=== PATIENT | male | born 1960 | race Caucasian/White ===

== ENCOUNTER 2018-12-29 06:54 | Day surgery (SDC) | payer OTHER ==
[~2018-12-29] VITALS: Ht 180.3 cm; Wt 116.1 kg
[~2018-12-29 06:54] MED LIST: ASPI1TAB PO; FENO145T13 PO; LISI10TA4 PO; MELA3TAB PO; MULTTAB PO
[2018-12-29] MEDS ORDERED: NS 1,000 ML IV ONE (07:00)
[2018-12-29] MEDS ORDERED: LIDOCAINE 2% INJ 100 MG/5 ML SDV (FOR ANES.) As Ordered ONE (07:02)
[2018-12-29] MEDS ORDERED: PROPOFOL 200 MG/20 ML VIAL As Ordered ONE (07:02)
--- NOTE | 2018-12-29 08:26 | ROOR ---
Patient Name: Dorian Cisneros Procedure Date: 12/29/2018 8:02 AM Date of : 1960 Age: 58 Room: [facility] Gender: Male Note Status: Finalized Procedure: Colonoscopy Indications: Screening for colorectal malignant neoplasm Providers: Brody RODRIGUEZ MD Referring MD: MELANIE BAIRES MD Requesting Provider: Medicines: Monitored Anesthesia Care Complications: No immediate complications. Procedure: Pre-Anesthesia Assessment: - The heart rate, respiratory rate, oxygen saturations, blood pressure, adequacy of pulmonary ventilation, and response to care were monitored throughout the procedure. The Colonoscope was introduced through the anus and advanced to the terminal ileum, with identification of the appendiceal orifice and IC valve. The colonoscopy was performed without difficulty. The patient tolerated the procedure well. The quality of the bowel preparation was good. Findings: The perianal and digital rectal examinations were normal. Small Internal Hemorrhoids. The entire colon appeared normal on direct and retroflexion views. Retroflexion in the right colon was performed. Impression: - Small Internal Hemorrhoids. - The entire colon is normal on direct and retroflexion views. - No specimens collected. Recommendation: - Repeat colonoscopy in 10 years for screening purposes. Brody Rodriguez MD Brody RODRIGUEZ MD 12/29/2018 8:25:58 AM This report has been signed electronically. Number of Addenda: 0 Note Initiated On: 12/29/2018 8:02 AM Estimated Blood Loss: Estimated blood loss: none.
[2018-12-29 08:50] VITALS: BP 153/71
== END 2018-12-29 08:58 | disposition home or self-care (01) ==
LOC: M OPP 06:54
PROVIDERS: ATTEND Internal Medicine Gastroenterology
DX: K64.8 Other hemorrhoids (principal); Z12.11 Encounter for screening for malignant neoplasm of colon

== ENCOUNTER 2020-01-08 01:02 | Emergency (ER) | payer OTHER ==
[~2020-01-08] VITALS: Ht 180.3 cm; Wt 114.5 kg
[~2020-01-08 01:02] MED LIST changes: -ASPI1TAB PO; +ASPI81TA26 PO; -FENO145T13 PO; +FENO145T7 PO; -MELA3TAB PO; +MELA3TAB63 PO
--- NOTE | 2020-01-08 01:59 | REPVR ---
PROCEDURE INFORMATION: Exam: CT Head Without Contrast Exam date and time: 01/08/2020 1:41 AM Age: 60 years old Clinical indication: Injury or trauma; Fall; Initial encounter; Blunt trauma (contusions or hematomas); Consciousness not specified; Additional info: Fall/head injury TECHNIQUE: Imaging protocol: Computed tomography of the head without contrast. Radiation optimization: All CT scans at this facility use at least one of these dose optimization techniques: automated exposure control; mA and/or kV adjustment per patient size (includes targeted exams where dose is matched to clinical indication); or iterative reconstruction. COMPARISON: No relevant prior studies available. FINDINGS: Brain: Normal. No hemorrhage. Unremarkable white matter. No mass effect. Ventricles: Normal. No ventriculomegaly. Bones/joints: Unremarkable. No acute fracture. Sinuses: Visualized sinuses are unremarkable. No fluid levels. Mastoid air cells: Visualized mastoid air cells are well aerated. Soft tissues: Unremarkable. IMPRESSION: No acute intracranial abnormality. Electronically signed by: Brody Tidwell On 01/08/2020 01:59:09 AM
--- NOTE | 2020-01-08 02:01 | REPVR ---
PROCEDURE INFORMATION: Exam: CT Maxillofacial Without Contrast Exam date and time: 01/08/2020 1:41 AM Age: 60 years old Clinical indication: Injury or trauma; Fall; Initial encounter; Blunt trauma (contusions or hematomas); Forehead and orbit/periorbital; Left; Additional info: Fall/head inj TECHNIQUE: Imaging protocol: Computed tomography images of the face without contrast. Radiation optimization: All CT scans at this facility use at least one of these dose optimization techniques: automated exposure control; mA and/or kV adjustment per patient size (includes targeted exams where dose is matched to clinical indication); or iterative reconstruction. COMPARISON: No relevant prior studies available. FINDINGS: Orbits: Orbits are normal. Globes are unremarkable. Sinuses: Mild scattered paranasal sinus mucosal thickening and secretions. Bones/joints: Lucencies within the nasal bones with slight deformity of the nasal bones, however appears potentially chronic, correlate. Dental: Dental caries and periodontal disease. Soft tissues: Left periorbital soft tissue swelling. IMPRESSION: Lucencies within the nasal bones with slight deformity of the nasal bones, however appears potentially chronic, correlate. Electronically signed by: Brody Tidwell On 01/08/2020 02:01:26 AM
--- NOTE | 2020-01-08 02:03 | REPVR ---
PROCEDURE INFORMATION: Exam: CT Cervical Spine Without Contrast Exam date and time: 01/08/2020 1:41 AM Age: 60 years old Clinical indication: Injury or trauma; Fall; Initial encounter; Blunt trauma; Additional info: Fall/head inj TECHNIQUE: Imaging protocol: Computed tomography images of the cervical spine without contrast. Radiation optimization: All CT scans at this facility use at least one of these dose optimization techniques: automated exposure control; mA and/or kV adjustment per patient size (includes targeted exams where dose is matched to clinical indication); or iterative reconstruction. COMPARISON: No relevant prior studies available. FINDINGS: Vertebrae: Straightening of the normal cervical lordotic curvature. Normal vertebral body heights and alignments. No fractures. Discs/Spinal canal/Neural foramina: Degenerative disc and joint disease with disc osteophyte complexes greatest at C3-C4, and C5-C7 with moderate spinal and foraminal stenosis. Soft tissues: Unremarkable. Auditory system: Debris and cerumen located in the external auditory canals. Lungs: Lung apices are normal. IMPRESSION: No acute fracture/subluxation. Electronically signed by: Brody Tidwell On 01/08/2020 02:02:39 AM
[2020-01-08 02:32] LABS: BASO # 0.1 10^3/uL (0.0-0.2); BASO % 0.6 % (0.0-1.0); EOS # 0.2 10^3/uL (0.0-0.5); EOS % 2.1 % (0.0-3.0); HEMATOCRIT 44.8 % (42.0-52.0); HEMOGLOBIN 15.7 g/dl (13.5-17.5); LYMPH # 1.7 10^3/uL (1.5-5.0); LYMPH % 21.4 % (24.0-44.0); MONO # 0.7 10^3/uL (0.0-0.8); MONO % 9.1 % (0.0-5.0); NEUTROPHILS # 5.1 10^3/uL (1.5-8.5); NEUTROPHILS % 66.4 % (36.0-66.0); PLATELET COUNT, AUTOMATED 238 10^3/uL (150-450); RED BLOOD COUNT 4.62 10^6/uL (4.30-6.10); WHITE BLOOD COUNT 7.7 10^3/uL (4.0-10.0)
[2020-01-08 02:58] LABS: ALBUMIN 3.7 GM/DL (3.2-5.2); ALT/SGPT 53 U/L (12-78); BILIRUBIN,TOTAL 0.2 MG/DL (0.2-1.0); BLOOD UREA NITROGEN 15 MG/DL (7-18); CALCIUM LEVEL 8.3 MG/DL (8.8-10.2); CARBON DIOXIDE LEVEL 26 MEQ/L (21-32); CHLORIDE LEVEL 109 MEQ/L (98-107); CK-MB VALUE MASS 2.9 NG/ML (<3.6); CPK CREATINE PHOSPHOKINASE 655 U/L (39-308); CREATININE FOR GFR 0.93 MG/DL (0.70-1.30); GLOMERULAR FILTRATION RATE > 60.0 (>49); GLUCOSE, FASTING 114 MG/DL (70-100); MB/CK RELATIVE INDEX 0.44 (< OR =4); POTASSIUM SERUM 4.1 MEQ/L (3.5-5.1); SODIUM LEVEL 143 MEQ/L (136-145); TOTAL PROTEIN 6.8 GM/DL (6.4-8.2); TROPONIN I < 0.02 NG/ML (< 0.10)
[2020-01-08 03:45] VITALS: BP 113/57
[2020-01-08] MEDS ORDERED: LIDOCAINE W/EPINEPHRINE 1% 20ML VIAL SC ONE (04:00)
[2020-01-08] MEDS ORDERED: ADACEL/BOOSTRIX VACCINE (DIPHTH/PERTUSS/ACELL/TETANUS)0.5ML SYR (90715) IM ONE (04:15)
--- NOTE | 2020-01-08 08:38 | ECGEPIP ---
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
== END 2020-01-08 04:29 | disposition home or self-care (01) ==
LOC: M ED 01:02
DX: S01.81XA Laceration without foreign body of other part of head, initial encounter (principal); W01.190A Fall on same level from slipping, tripping and stumbling with subsequent striking against furniture, initial encounter; Y92.003 Bedroom of unspecified non-institutional (private) residence as the place of occurrence of the external cause; Y93.89 Activity, other specified; Y99.9 Unspecified external cause status; Z79.899 Other long term (current) drug therapy

== ENCOUNTER → 2024-04-05 | Outpatient (CLI) | payer OTHER ==
[~2024-04-05] MED LIST changes: +LISI10TA22 PO; -LISI10TA4 PO; -MELA3TAB63 PO; +MELA3TAB70 PO
== END ==
LOC: M RAD 07:47
PROVIDERS: ATTEND Orthopaedic Surgery
DX: M54.59 Other low back pain (principal)

== ENCOUNTER → 2024-05-26 | Outpatient (CLI) | payer OTHER ==
[~2024-05-26] MED LIST changes: +PROHANCE 279.3MG/ML 15ML VIAL ONE; +PROHANCE 279.3MG/ML 5ML VIAL ONE
== END ==
LOC: M PLAIMG 13:57
PROVIDERS: ATTEND Physician Assistant
DX: M16.11 Unilateral primary osteoarthritis, right hip (principal); R93.7 Abnormal findings on diagnostic imaging of other parts of musculoskeletal system
CPT/HCPCS: 72158; A9576

== ENCOUNTER → 2025-04-05 | Outpatient (CLI) | payer MEDICARE, OTHER ==
[~2025-04-05] MED LIST changes: -PROHANCE 279.3MG/ML 15ML VIAL ONE; -PROHANCE 279.3MG/ML 5ML VIAL ONE
== END ==
LOC: M RAD 15:19
PROVIDERS: ATTEND Internal Medicine
DX: Z87.891 Personal history of nicotine dependence (principal)

== ENCOUNTER 2025-09-09 15:22 | Inpatient (IN) | payer MEDICARE, OTHER ==
[~2025-09-09] VITALS: Ht 180.3 cm; Wt 108.4 kg
[2025-09-09] MEDS: NICOTINE 21 MG/24 HR 1 EA TRANSDERMAL TD SCH (09:00)
[2025-09-09 16:09] LABS: BASO # 0.1 10^3/uL (0.0-0.2); BASO % 0.7 % (0.0-1.0); EOS # 0.2 10^3/uL (0.0-0.5); EOS % 2.6 % (0.0-3.0); LYMPH # 2.4 10^3/uL (1.5-5.0); LYMPH % 31.5 % (24.0-44.0); MONO # 0.7 10^3/uL (0.0-0.8); MONO % 9.7 % (2.0-8.0); NEUTROPHILS # 4.2 10^3/uL (1.5-8.5); NEUTROPHILS % 55.2 % (36.0-66.0); PLATELET COUNT, AUTOMATED 212 10^3/uL (150-450)
[2025-09-09 16:20] LABS: INR 0.99
[2025-09-09 16:33] LABS: ETHYL ALCOHOL (ETHANOL) 0.15 % (0.000-0.010)
[2025-09-09 16:35] LABS: CALCIUM LEVEL 8.7 MG/DL (8.3-10.6); CARBON DIOXIDE LEVEL 24.0 MMOL/L (20-31); CHLORIDE LEVEL 104.0 MMOL/L (98-107); CK-MB VALUE MASS 2.2 NG/ML (<3.6); CREATININE FOR GFR 1.02 MG/DL (0.70-1.30); GLOMERULAR FILTRATION RATE 81.6 (>49); MAGNESIUM LEVEL 2.1 MG/DL (1.8-2.4); POTASSIUM SERUM 4.3 MMOL/L (3.5-5.1); SODIUM LEVEL 138.0 MMOL/L (136-145)
[2025-09-09 16:37] LABS: FREE T4 1.28 NG/DL (0.89-1.76)
[2025-09-09] MEDS: NS (Normal Saline) 0.9% 1,000 ML IV ONE (16:38)
[2025-09-09 16:39] LABS: CPK CREATINE PHOSPHOKINASE 159.0 U/L (46-171); MB/CK RELATIVE INDEX 1.38 (< OR =4)
[2025-09-09 17:35] LABS: CK-MB VALUE MASS 1.9 NG/ML (<3.6)
[2025-09-09 17:37] LABS: CPK CREATINE PHOSPHOKINASE 141.0 U/L (46-171); MB/CK RELATIVE INDEX 1.34 (< OR =4)
[2025-09-09] MEDS ORDERED: ACETAMINOPHEN 325 MG TAB PO PRN (18:20)
[2025-09-09] MEDS ORDERED: ISOVUE-370 76% 100 ML VIAL As Ordered ONE (18:39)
[2025-09-09] MEDS: NS (Normal Saline) 0.9% 1,000 ML IV SCH (18:40)
[2025-09-09 18:52] LABS: CHOLESTEROL LEVEL 165.0 MG/DL (<200); CHOLESTEROL RISK RATIO 3.49 (<5); LDL CHOLESTEROL 84.6 MG/DL (<100); NON-HDL-C 117.8 MG/DL; TRIGLYCERIDES LEVEL 166.0 MG/DL (<150)
[2025-09-09 19:22] LABS: ESTIMATED AVERAGE GLUCOSE 103.0 MG/DL (60-110)
[2025-09-09 19:34] LABS: INR 1.02
[2025-09-09] MEDS: THIAMINE 100 MG TAB PO SCH (20:00)
[2025-09-09] MEDS ORDERED: ROSU10TA61 PO (23:48)
[2025-09-09] MEDS ORDERED: MULTTAB13 PO (23:48)
[2025-09-09] MEDS ORDERED: RA M10TA PO (23:48)
[2025-09-09] MEDS ORDERED: TAMS1CAP17 PO (23:48)
[2025-09-09] MEDS ORDERED: LISI20TA33 PO (23:48)
[2025-09-09] MEDS ORDERED: HOME MED LIST COMPLETE! XX SCH (23:50)
[2025-09-10] MEDS: ATORVASTATIN 20 MG TAB PO SCH (00:42)
[2025-09-10 06:29] LABS: PLATELET COUNT, AUTOMATED 223 10^3/uL (150-450)
[2025-09-10 07:02] LABS: ALT/SGPT 31 U/L (7.0-40); AST/SGOT 22 U/L (<34); CALCIUM LEVEL 9.0 MG/DL (8.3-10.6); CARBON DIOXIDE LEVEL 25 MMOL/L (20-31); CHLORIDE LEVEL 107 MMOL/L (98-107); CREATININE FOR GFR 0.82 MG/DL (0.70-1.30); GLOMERULAR FILTRATION RATE > 90.0 (>49); POTASSIUM SERUM 4.6 MMOL/L (3.5-5.1); SODIUM LEVEL 142 MMOL/L (136-145)
[2025-09-10] MEDS: FOLIC ACID 1 MG TAB PO SCH (09:43)
[2025-09-10] MEDS: MULTIVITAMINS/MINERALS THERAP 1 TAB PO SCH (09:43)
[2025-09-10] MEDS: ASPIRIN 81 MG ENTERIC TABLET PO SCH (16:02)
[2025-09-10] MEDS: CLOPIDOGREL 75 MG TAB PO SCH (16:03)
[2025-09-10] MEDS: hydrALAZINE 20 MG/ML 1 ML VIAL IV PRN (18:49)
[2025-09-10 20:30] VITALS: BP 163/88
[2025-09-10 20:55] VITALS: BP 163/88; TEMP 97.5; O2SAT 96
[2025-09-10] MEDS: TAMSULOSIN 0.4 MG CAP PO SCH (21:03)
[2025-09-11 01:00] VITALS: BP 148/67; TEMP 97.5; O2SAT 97
[2025-09-11 04:19] VITALS: BP 159/79; TEMP 97.4; O2SAT 97
[2025-09-11 04:21] VITALS: BP 159/79
[2025-09-11 07:35] LABS: PLATELET COUNT, AUTOMATED 196 10^3/uL (150-450)
[2025-09-11] MEDS: ENOXAPARIN 40 MG/0.4 ML SYRINGE (J1650 PER 10MG) SC SCH (07:37)
[2025-09-11 07:39] VITALS: BP 172/84
[2025-09-11 08:05] LABS: ALT/SGPT 26 U/L (7.0-40); AST/SGOT 17 U/L (<34); CALCIUM LEVEL 8.9 MG/DL (8.3-10.6); CARBON DIOXIDE LEVEL 26 MMOL/L (20-31); CHLORIDE LEVEL 108 MMOL/L (98-107); CREATININE FOR GFR 0.86 MG/DL (0.70-1.30); GLOMERULAR FILTRATION RATE > 90.0 (>49); POTASSIUM SERUM 4.2 MMOL/L (3.5-5.1); SODIUM LEVEL 144 MMOL/L (136-145)
[2025-09-11 12:30] VITALS: BP 149/74; O2SAT 97
[2025-09-11] MEDS ORDERED: ATOR80TA59 PO (13:31)
[2025-09-11] MEDS ORDERED: ASPI81TAEC PO (13:31)
[2025-09-11] MEDS ORDERED: CLOP75TA2 PO (13:31)
== END 2025-09-11 14:48 | disposition home or self-care (01) | DRG 66 ==
LOC: M ED 15:22 → M ED INP 15:23 → OBSVTOIN 09-10 18:35
PROVIDERS: ADMIT Internal Medicine; ATTEND Internal Medicine
PROC: B246ZZZ Ultrasonography of Right and Left Heart (ICD-10-PCS; principal; 2025-09-11)
DX: I63.9 Cerebral infarction, unspecified (principal); I65.22 Occlusion and stenosis of left carotid artery; F10.920 Alcohol use, unspecified with intoxication, uncomplicated; E78.5 Hyperlipidemia, unspecified; N40.0 Benign prostatic hyperplasia without lower urinary tract symptoms; I10 Essential (primary) hypertension; G47.30 Sleep apnea, unspecified; F17.210 Nicotine dependence, cigarettes, uncomplicated; Z79.899 Other long term (current) drug therapy; Z86.73 Personal history of transient ischemic attack (TIA), and cerebral infarction without residual deficits